=== PATIENT | male | born 1965 | race Caucasian/White ===

== ENCOUNTER 2017-08-01 02:37 | Observation (INO) | payer OTHER ==
[~2017-08-01] VITALS: Ht 175.3 cm; Wt 102.4 kg
[2017-08-01 02:58] LABS: BASOPHIL (%) 0.6 % (0-1); BASOPHIL COUNT 0.1 K/uL (0-0.1); EOSINOPHIL (%) 0.9 % (0-5); EOSINOPHIL COUNT 0.1 K/uL (0-0.3); HEMATOCRIT 43.7 % (38.0-50.0); HEMOGLOBIN 14.9 G/DL (12.5-16.6); IMMATURE GRANULOCYTE (%) 0.2 % (0.0-0.7); LYMPHOCYTE (%) 14.3 % (15-42); LYMPHOCYTE COUNT 1.3 K/uL (1.0-2.8); MCH 30.2 PG (29.0-34.0); MCHC 34.1 G/DL (30.0-36.0); MCV 88.5 FL (86-99); MONOCYTE (%) 5.8 % (3-12); MONOCYTE COUNT 0.5 K/uL (0-0.8); NEUTROPHIL (%) 78.2 % (45-76); NEUTROPHIL COUNT 6.9 K/uL (1.8-6.4); PLATELET COUNT 195 K/uL (156-360); RBC DIS.WIDTH-CV 12.8 % (11.8-14.6); RBC DIS.WIDTH-SD 41.3 % (39-53); RED BLOOD COUNT 4.94 M/uL (4.00-5.50); WHITE BLOOD COUNT 8.8 K/uL (4.1-10.2)
[2017-08-01 03:10] LABS: AMYLASE 36 IU/L (1-118); CHLORIDE 106 mEq/L (99-109); POTASSIUM 4.1 mEq/L (3.7-5.4); SODIUM 140 mEq/L (136-147)
[2017-08-01 03:12] LABS: GLUCOSE 159 mg/dL (70-99)
[2017-08-01 03:14] LABS: TROP-I INTERPRETATION NEGATIVE; TROPONIN-I < 0.01 ng/mL (0.0-0.30)
[2017-08-01 03:15] LABS: SERUM ETHYL ALCOHOL < 10 mg/dL
[2017-08-01 03:16] LABS: GFR ESTIMATE (CALCULATED) > 59 mL/min/ (58.99-99999)
[2017-08-01 03:17] LABS: UREA NITROGEN (BUN) 10 mg/dL (9-23)
[2017-08-01 03:19] LABS: LIPASE 8 U/L (1.0-51.0)
[2017-08-01 03:35] LABS: APPEARANCE CLEAR ((CLEAR)); BILIRUBIN NEGATIVE; BLOOD NEGATIVE; COLOR YELLOW ((YELLOW)); GLUCOSE (STRIP) 150; KETONES NEGATIVE; LEUKOCYTES NEGATIVE; NITRITE NEGATIVE; PROTEIN (STRIP) NEGATIVE; SPECIFIC GRAVITY 1.029 (1.000-1.030); UCUL ADDED? NO; UROBILINOGEN 0.2 MG/DL (0.2-1.0)
[2017-08-01 05:30] LABS: AMPHETAMINE NEGATIVE (500 ng/mL); BARBITURATES NEGATIVE (200 ng/mL); BENZODIAZEPINES NEGATIVE (150 ng/mL); BUPRENORPHINE NEGATIVE (10 ng/mL); COCAINE NEGATIVE (150 ng/mL); METHADONE NEGATIVE (200 ng/mL); METHAMPHETAMINE NEGATIVE (500 ng/mL); OPIATES (MORPHINE) NEGATIVE (100 ng/mL); OXYCODONE NEGATIVE (100 ng/mL); PHENCYCLIDINE NEGATIVE (25 ng/mL); PROPOXYPHENE NEGATIVE (300 ng/mL); THC CANNABINOIDS NEGATIVE (50 ng/mL); TRICYCLIC ANTIDEPRESSANTS NEGATIVE (300 ng/mL)
[2017-08-01 07:00] LABS: HDL CHOLESTEROL 43 MG/DL (Desirable>=40); LDL CHOLESTEROL 122 mg/dL (Desirable<100); NON-HDL CHOLESTEROL 139 mg/dL (Desirable<160); TOTAL CHOLESTEROL 182 mg/dL (Desirable<200); TRIGLYCERIDES 83 MG/DL (Normal: <150)
[2017-08-01 07:56] VITALS: BP 185/91
[2017-08-01 09:49] LABS: HEMOGLOBIN A1c (GLYCOHEMOGLOB) 5.6 % (Below 5.7)
[2017-08-01 11:47] VITALS: BP 167/85
[2017-08-01 15:24] VITALS: BP 159/81
[2017-08-01] MEDS ORDERED: LOPRESSOR25 MG PO (15:49)
[2017-08-01] MEDS ORDERED: ASPIR-LOW81 MG PO (15:49)
[2017-08-01] MEDS ORDERED: AMLODIPINE BESYL5 MG PO (15:49)
== END 2017-08-01 18:16 | disposition home or self-care (01) ==
LOC: EME 02:37 → EDOF 06:00 → ENRESERV 06:06 → 4SOUTH 07:28
PROVIDERS: Emergency Medicine
PROC: B246ZZZ Ultrasonography of Right and Left Heart (ICD-10-PCS; principal; 2017-08-01)
DX: R42 Dizziness and giddiness (principal); R26.0 Ataxic gait; R53.1 Weakness; R93.0 Abnormal findings on diagnostic imaging of skull and head, not elsewhere classified; R26.89 Other abnormalities of gait and mobility; I10 Essential (primary) hypertension; J32.9 Chronic sinusitis, unspecified; R51 Headache; Z88.6 Allergy status to analgesic agent
CPT/HCPCS: 70450; 70496; 70498; 70551; 80047; 80048; 80061; 81003; 82150; 83036; 83605; 83690; 84484; 85025; 85610; 85730; 86850; 86900; 86901; 93005; 93306; 99281; 99285; G0378; G0480; J7030